=== PATIENT | female | born 1970 | race African-American/Black ===

== ENCOUNTER → 2016-09-27 | Day surgery (SDC) | payer OTHER ==
[~2016-09-27] VITALS: Ht 172.7 cm; Wt 127.0 kg
[~2016-09-27] MED LIST: CYPROHEPTADINE H4 M1 PO; OMEPRAZOLE40 M1 PO; PATANASE30.5 GM NASB
--- NOTE | 2016-09-27 16:47 | Operative Report ---
Operative/Inv Procedure Report Surgery Date: 09/27/16 Name of Procedure: Debridement and closure postoperative wound dehiscence abdominal wall Excision of seroma cavity abdominal wall Pre-Operative Diagnosis: Wound dehiscence and infection postop panniculectomy Post-Operative Diagnosis: Same Estimated Blood Loss: 50ml to 100ml Surgeon/Traveling Auditor: PRIYA ANGEL MD Anesthesia: general endotracheal tube Operative/Procedure Note Note: Patient was counseled Yu[place] proceeded the alternatives risks and expected outcomes as relates to debridement and closure of a dehisced abdominal wall wound. The patient underwent a panniculectomy another cosmetic surgeries and resulted in a postoperative bleed requiring reoperation. The patient then developed soft tissue infection of the abdominal wall resulting in dehiscence foul odor drainage chronic tissue of the lower abdominal incision. In addition she has a soft mass from the incision in the central abdomen and likely represents seroma or hematoma. In terms related to it and it is readily palpable in approximately 10 cm in dimension. We discussed the risk of closing a contaminated wound which would cause reopening of the wound infection bleeding pain and numbness. We also talked about the possibility of skin loss to the reoperative nature. She signed informed consent was taken to the operating room placed supine on the table. Venodyne boots are placed and then general anesthesia was given antibiotics were given intravenously. Lower leg was prepped and draped in usual sterile fashion. Elliptical incision was carried around the lower 15 cm dehiscence. This was done after instilling methylene blue throughout the wound. Separate and distinct from this area there was a palpable mass superiorly. This was opened after further dissection and found to contain a seroma about cavity. The cavity was dissected free of the overlying soft tissue was opened and curettage. The wound was curettaged with the use of electrocautery as well as removing well from flat necrotic tissue. Last was performed as well. Pulse lavage irrigation was used throughout. The area. A very clean at the completion of this debridement 3 layer closure was carried out over to fresh drains. Dictation
== END ==
LOC: STS 04:21
DX: T81.31XA Disruption of external operation (surgical) wound, not elsewhere classified, initial encounter (principal); L76.34 Postprocedural seroma of skin and subcutaneous tissue following other procedure; Y83.8 Other surgical procedures as the cause of abnormal reaction of the patient, or of later complication, without mention of misadventure at the time of the procedure; K21.9 Gastro-esophageal reflux disease without esophagitis; Z98.84 Bariatric surgery status
CPT/HCPCS: 81025; J0131; J0690; J2250